=== PATIENT | female | born 1980 | race Caucasian/White ===

== ENCOUNTER 2018-07-12 08:36 | Inpatient (IN) | payer OTHER ==
[~2018-07-12] VITALS: Ht 210.8 cm; Wt 228.0 kg
[2018-07-12] MEDS ORDERED: SYNTHROID100 MCG PO (09:05)
[2018-07-12] MEDS ORDERED: LABETALOL HCL200 MG PO (09:08)
[2018-07-12] MEDS ORDERED: PRENATAL FORMU1 EAC1 PO (09:08)
[2018-07-12] MEDS ORDERED: HUMULIN N100 UNIT/2 SUBCUTANEO (09:10)
[2018-07-12] MEDS ORDERED: NOVOLIN R100 UNIT/1 SUBCUTANEO (09:11)
== END 2018-07-17 10:50 | disposition home or self-care (01) | DRG 765 ==
LOC: LDR 08:36 → OB/GYN 08:36 → EDBD 08:36 → OB/GYN 07-13 20:16
PROVIDERS: Obstetrics & Gynecology Maternal & Fetal Medicine
PROC: 4A1HXCZ Monitoring of Products of Conception, Cardiac Rate, External Approach (ICD-10-PCS; 2018-07-12)
PROC: 4A033R1 Measurement of Arterial Saturation, Peripheral, Percutaneous Approach (ICD-10-PCS; 2018-07-13)
PROC: 10D00Z1 Extraction of Products of Conception, Low, Open Approach (ICD-10-PCS; principal; 2018-07-13 17:00)
DX: O42.013 Preterm premature rupture of membranes, onset of labor within 24 hours of rupture, third trimester (principal); O60.14X0 Preterm labor third trimester with preterm delivery third trimester, not applicable or unspecified; O34.211 Maternal care for low transverse scar from previous cesarean delivery; O99.89 Other specified diseases and conditions complicating pregnancy, childbirth and the puerperium; N73.6 Female pelvic peritoneal adhesions (postinfective); O75.82 Onset (spontaneous) of labor after 37 completed weeks of gestation but before 39 completed weeks gestation, with delivery by (planned) cesarean section; Z3A.33 33 weeks gestation of pregnancy; Z37.0 Single live birth